=== PATIENT | male | born 1945 | race Caucasian/White ===

== ENCOUNTER 2017-07-28 13:19 | Emergency (ER) | payer MEDICARE, OTHER ==
[2012-05-07 10:36] VITALS: BMI 32.3
[2017-07-28 14:07] LABS: BASOPHILS 0.6 % (0-2); EOSINOPHILS 1.7 % (0-7); HEMOGLOBIN 15.6 g/dL (13.5-17.5); IMMATURE GRANULOCYTES 0.3 % (0-5); LYMPHOCYTES 23.6 % (15-50); MCHC 33.2 g/dL (31.0-37.0); MCV 96.3 fL (80.0-100.0); MEAN PLATELET VOLUME 11.7 fL (7.4-10.4); MONOCYTES 5.5 % (2-11); NEUTROPHILS 68.3 % (40-80); PLATELET COUNT 197 10x3/uL (130-400); RBC 4.88 10x6/uL (4.20-6.10); RDW 14.9 % (11.5-14.5); WBC 6.9 10x3/uL (4.8-10.8)
[2017-07-28 14:20] LABS: ALBUMIN 3.8 g/dL (3.4-5.0); ALKALINE PHOSPHATASE 68 U/L (46-116); ALT (SGPT) 30 U/L (10-68); BILIRUBIN - TOTAL 0.39 mg/dL (0.2-1.3); CALC OSMOLALITY 285 mosm/kg (275-300); CALCIUM 9.8 mg/dL (8.5-10.1); CARBON DIOXIDE 28.9 mmol/L (21.0-32.0); CHLORIDE - SERUM 102 mmol/L (98-107); GLUCOSE 147 mg/dL (74-106); POTASSIUM - SERUM 4.1 mmol/L (3.5-5.1); PROTEIN - SERUM 7.2 g/dL (6.4-8.2); SODIUM 141 mmol/L (136-145); UREA NITROGEN 17 mg/dL (7-18); eGFR NON AFRICAN AMERICAN 79 mL/min (90-120)
[2017-07-28 14:24] LABS: APPEARANCE CLEAR (CLEAR); COLOR YELLOW (YELLOW)
[2017-07-28 14:25] LABS: SPECIFIC GRAVITY 1.015 (1.005-1.020)
[2017-07-28 14:30] LABS: GLUCOSE 250 mg/dL (NEGATIVE); KETONE NEGATIVE (NEGATIVE); NITRITE NEGATIVE (NEGATIVE); PROTEIN 1+ mg/dL (NEGATIVE)
[2017-07-28 14:31] LABS: BILIRUBIN NEGATIVE (NEGATIVE); UROBILINOGEN NORMAL (NORMAL)
== END 2017-07-28 18:19 | disposition home or self-care (01) ==
LOC: D.ER 13:19
PROVIDERS: Emergency Medicine
DX: R41.82 Altered mental status, unspecified (principal); E11.9 Type 2 diabetes mellitus without complications; Z79.4 Long term (current) use of insulin; I10 Essential (primary) hypertension

== ENCOUNTER 2018-06-27 23:51 | Inpatient (IN) | payer MEDICARE, OTHER ==
[~2018-06-27] VITALS: Ht 177.8 cm; Wt 115.0 kg
[2018-06-27] MEDS ORDERED: HYDROCODON-ACE1 EAC7 PO (23:56)
[2018-06-27] MEDS ORDERED: LOVENOX40 MG/0.4 SC (23:56)
[2018-06-27] MEDS ORDERED: PIOGLITAZONE15 MG PO (23:57)
[2018-06-27] MEDS ORDERED: MAG-OX 400 MG400 MG PO (23:57)
[2018-06-27] MEDS ORDERED: JANUVIA100 MG PO (23:58)
[2018-06-27] MEDS ORDERED: GLIPIZIDE10 MG PO (23:58)
[2018-06-27] MEDS ORDERED: GLUCOPHAGE1000 MG PO (23:58)
[2018-06-27] MEDS ORDERED: ACCUPRIL20 MG PO (23:58)
[2018-06-27] MEDS ORDERED: METHOTREXATE2.5 MG PO (23:59)
[2018-06-27] MEDS ORDERED: PLAVIX75 MG (23:59)
[2018-06-27] MEDS ORDERED: LIPITOR40 MG PO (23:59)
[2018-06-28 01:37] LABS: BASOPHILS 0.2 % (0-2); EOSINOPHILS 0.2 % (0-7); HEMATOCRIT 30.2 % (42.0-54.0); HEMOGLOBIN 10.1 g/dL (13.5-17.5); IMMATURE GRANULOCYTES 0.6 % (0-5); LYMPHOCYTES 7.1 % (15-50); MCH 30.4 pg (26.0-34.0); MCHC 33.1 g/dL (31.0-37.0); MCV 91.8 fL (80.0-100.0); MEAN PLATELET VOLUME 9.9 fL (7.4-10.4); MONOCYTES 6.2 % (2-11); NEUTROPHILS 85.7 % (40-80); PLATELET COUNT 359 10x3/uL (130-400); RBC 3.19 10x6/uL (4.20-6.10); RDW 17.4 % (11.5-14.5); WBC 10.5 10x3/uL (4.8-10.8)
[2018-06-28 01:49] LABS: ALBUMIN 2.8 g/dL (3.4-5.0); ALKALINE PHOSPHATASE 115 U/L (46-116); ALT (SGPT) 65 U/L (10-68); BILIRUBIN - TOTAL 0.93 mg/dL (0.2-1.3); CALC OSMOLALITY 280 mosm/kg (275-300); CALCIUM 8.9 mg/dL (8.5-10.1); CARBON DIOXIDE 22.9 mmol/L (21.0-32.0); CHLORIDE - SERUM 100 mmol/L (98-107); PROTEIN - SERUM 6.1 g/dL (6.4-8.2); SODIUM 134 mmol/L (136-145); UREA NITROGEN 21 mg/dL (7-18); eGFR NON AFRICAN AMERICAN 78 mL/min (90-120)
[2018-06-28 01:51] LABS: GLUCOSE 285 mg/dL (74-106)
[2018-06-28 02:00] VITALS: BP 115/50
[2018-06-28 04:00] VITALS: BP 138/71
[2018-06-28] MEDS ORDERED: GLUCOPHAGE500 MG PO (04:17)
[2018-06-28] MEDS ORDERED: PREVACID15 MG PO (04:18)
[2018-06-28] MEDS ORDERED: GLIPIZIDE10 MG PO (04:19)
[2018-06-28] MEDS ORDERED: JANUVIA100 MG PO (04:20)
[2018-06-28] MEDS ORDERED: ACCUPRIL20 MG PO (04:20)
[2018-06-28] MEDS ORDERED: FOLIC ACID1 MG PO ×2 (04:21)
[2018-06-28] MEDS ORDERED: LIPITOR40 MG PO (04:21)
[2018-06-28] MEDS ORDERED: PLAVIX75 MG PO (04:23)
[2018-06-28] MEDS ORDERED: METHOTREXATE2.5 MG PO (04:23)
[2018-06-28] MEDS ORDERED: PIOGLITAZONE HC30 MG PO (04:24)
[2018-06-28] MEDS ORDERED: FERROUS SULFAT325 MG PO ×2 (04:26)
[2018-06-28] MEDS ORDERED: MAG-OX 400 MG400 MG PO (04:28)
[2018-06-28] MEDS ORDERED: HYDROCODON-ACE1 EAC7 PO (04:28)
[2018-06-28] MEDS ORDERED: LOVENOX40 MG/0.4 SC (04:29)
[2018-06-28 06:57] VITALS: BP 138/71; BMI 36.3
[2018-06-28 07:54] VITALS: BP 132/67
[2018-06-28 10:05] LABS: APTT 41.3 SECONDS (22.8-39.4); INR 1.26 (0.85-1.17); PROTIME 15.4 SECONDS (11.6-15.0)
[2018-06-28 10:49] VITALS: BMI 36.2
[2018-06-28 11:27] VITALS: BP 135/65
[2018-06-28 13:47] VITALS: Ht 177.8 cm; Wt 115.0 kg
[2018-06-28 20:00] VITALS: BP 126/71
[2018-06-29] VITALS: BP 137/77
[2018-06-29 04:29] LABS: BASOPHILS 0.1 % (0-2); EOSINOPHILS 1.8 % (0-7); HEMATOCRIT 27.2 % (42.0-54.0); HEMOGLOBIN 8.9 g/dL (13.5-17.5); IMMATURE GRANULOCYTES 0.7 % (0-5); LYMPHOCYTES 13.4 % (15-50); MCH 30.5 pg (26.0-34.0); MCHC 32.7 g/dL (31.0-37.0); MCV 93.2 fL (80.0-100.0); MEAN PLATELET VOLUME 9.6 fL (7.4-10.4); MONOCYTES 6.5 % (2-11); NEUTROPHILS 77.5 % (40-80); PLATELET COUNT 320 10x3/uL (130-400); RBC 2.92 10x6/uL (4.20-6.10); RDW 17.8 % (11.5-14.5)
[2018-06-29 04:35] LABS: WBC 7.3 10x3/uL (4.8-10.8)
[2018-06-29 04:57] LABS: ALBUMIN 2.5 g/dL (3.4-5.0); ALKALINE PHOSPHATASE 100 U/L (46-116); ALT (SGPT) 45 U/L (10-68); CALC OSMOLALITY 276 mosm/kg (275-300); CALCIUM 8.5 mg/dL (8.5-10.1); CHLORIDE - SERUM 101 mmol/L (98-107); CREATININE - SERUM 0.9 mg/dL (0.6-1.3); GLUCOSE 235 mg/dL (74-106); MAGNESIUM - SERUM 1.6 mg/dL (1.8-2.4); POTASSIUM - SERUM 3.9 mmol/L (3.5-5.1); PROTEIN - SERUM 5.7 g/dL (6.4-8.2); SODIUM 134 mmol/L (136-145); UREA NITROGEN 16 mg/dL (7-18); eGFR NON AFRICAN AMERICAN 89 mL/min (90-120)
[2018-06-29 05:53] VITALS: BP 122/72
[2018-06-29 07:59] VITALS: BP 123/75
[2018-06-29 10:46] VITALS: BP 109/58
[2018-06-29 15:47] VITALS: BP 124/66
[2018-06-29 20:00] VITALS: BP 110/53
[2018-06-30] VITALS: BP 106/62
[2018-06-30 04:00] VITALS: BP 147/77
[2018-06-30 05:38] LABS: BASOPHILS 0.3 % (0-2); EOSINOPHILS 3.6 % (0-7); HEMATOCRIT 25.1 % (42.0-54.0); HEMOGLOBIN 8.1 g/dL (13.5-17.5); IMMATURE GRANULOCYTES 0.6 % (0-5); MCH 30.2 pg (26.0-34.0); MCHC 32.3 g/dL (31.0-37.0); MCV 93.7 fL (80.0-100.0); MONOCYTES 9.9 % (2-11); NEUTROPHILS 66.6 % (40-80); PLATELET COUNT 326 10x3/uL (130-400); RBC 2.68 10x6/uL (4.20-6.10); RDW 17.5 % (11.5-14.5); WBC 6.4 10x3/uL (4.8-10.8)
[2018-06-30 05:50] LABS: ALBUMIN 2.2 g/dL (3.4-5.0); ALKALINE PHOSPHATASE 88 U/L (46-116); ALT (SGPT) 35 U/L (10-68); BILIRUBIN - TOTAL 0.73 mg/dL (0.2-1.3); CALC OSMOLALITY 277 mosm/kg (275-300); CALCIUM 8.6 mg/dL (8.5-10.1); CARBON DIOXIDE 26.9 mmol/L (21.0-32.0); CHLORIDE - SERUM 103 mmol/L (98-107); CREATININE - SERUM 0.7 mg/dL (0.6-1.3); GLUCOSE 195 mg/dL (74-106); MAGNESIUM - SERUM 1.6 mg/dL (1.8-2.4); POTASSIUM - SERUM 3.9 mmol/L (3.5-5.1); PROTEIN - SERUM 5.3 g/dL (6.4-8.2); SODIUM 136 mmol/L (136-145); UREA NITROGEN 14 mg/dL (7-18); eGFR NON AFRICAN AMERICAN > 90 mL/min (90-120)
[2018-06-30 08:04] VITALS: BP 131/74
[2018-06-30 11:01] VITALS: BP 111/68
[2018-06-30 13:48] LABS: % SATURATION 14 % (15-55); IRON 24 ug/dl (35-150); TOTAL IRON BIND CAPACITY 171 ug/dl (260-445); UNSAT IRON BIND CAPACITY 147 ug/dl (150-375)
[2018-06-30 18:26] VITALS: BP 110/70
[2018-06-30 20:00] VITALS: BP 140/76
[2018-07-01 00:11] VITALS: BP 135/78
[2018-07-01 04:00] VITALS: BP 114/62
[2018-07-01 04:06] LABS: BASOPHILS 0.3 % (0-2); EOSINOPHILS 3.3 % (0-7); HEMATOCRIT 25.4 % (42.0-54.0); HEMOGLOBIN 8.2 g/dL (13.5-17.5); IMMATURE GRANULOCYTES 0.7 % (0-5); LYMPHOCYTES 19.6 % (15-50); MCH 30.1 pg (26.0-34.0); MCHC 32.3 g/dL (31.0-37.0); MCV 93.4 fL (80.0-100.0); MEAN PLATELET VOLUME 9.9 fL (7.4-10.4); MONOCYTES 12.1 % (2-11); PLATELET COUNT 371 10x3/uL (130-400); RBC 2.72 10x6/uL (4.20-6.10); RDW 17.3 % (11.5-14.5); WBC 6.7 10x3/uL (4.8-10.8)
[2018-07-01 04:21] LABS: ALBUMIN 2.3 g/dL (3.4-5.0); ALKALINE PHOSPHATASE 98 U/L (46-116); ALT (SGPT) 31 U/L (10-68); BILIRUBIN - TOTAL 0.65 mg/dL (0.2-1.3); CALC OSMOLALITY 274 mosm/kg (275-300); CALCIUM 8.4 mg/dL (8.5-10.1); CARBON DIOXIDE 27.9 mmol/L (21.0-32.0); CHLORIDE - SERUM 101 mmol/L (98-107); CREATININE - SERUM 0.8 mg/dL (0.6-1.3); GLUCOSE 201 mg/dL (74-106); MAGNESIUM - SERUM 1.6 mg/dL (1.8-2.4); PHOSPHOROUS 3.3 mg/dL (2.5-4.9); POTASSIUM - SERUM 4.1 mmol/L (3.5-5.1); PROTEIN - SERUM 5.5 g/dL (6.4-8.2); SODIUM 134 mmol/L (136-145); UREA NITROGEN 14 mg/dL (7-18); eGFR NON AFRICAN AMERICAN > 90 mL/min (90-120)
[2018-07-01 09:08] VITALS: BP 126/72
[2018-07-01 12:33] VITALS: BP 120/68
[2018-07-01 15:12] VITALS: BP 110/74
[2018-07-01 20:46] VITALS: BP 137/60
[2018-07-02] VITALS: BP 105/73
[2018-07-02 05:22] LABS: BASOPHILS 0.3 % (0-2); EOSINOPHILS 3.7 % (0-7); HEMATOCRIT 27.2 % (42.0-54.0); HEMOGLOBIN 8.8 g/dL (13.5-17.5); LYMPHOCYTES 20.4 % (15-50); MCHC 32.4 g/dL (31.0-37.0); MCV 92.8 fL (80.0-100.0); MEAN PLATELET VOLUME 9.7 fL (7.4-10.4); NEUTROPHILS 61.6 % (40-80); PLATELET COUNT 443 10x3/uL (130-400); RBC 2.93 10x6/uL (4.20-6.10); RDW 17.2 % (11.5-14.5); WBC 5.9 10x3/uL (4.8-10.8)
[2018-07-02 05:55] VITALS: BP 140/59
[2018-07-02 05:56] LABS: ALBUMIN 2.5 g/dL (3.4-5.0); ALKALINE PHOSPHATASE 108 U/L (46-116); ALT (SGPT) 33 U/L (10-68); BILIRUBIN - TOTAL 0.78 mg/dL (0.2-1.3); CALC OSMOLALITY 279 mosm/kg (275-300); CALCIUM 8.9 mg/dL (8.5-10.1); CARBON DIOXIDE 25.6 mmol/L (21.0-32.0); CHLORIDE - SERUM 103 mmol/L (98-107); CREATININE - SERUM 0.9 mg/dL (0.6-1.3); MAGNESIUM - SERUM 1.6 mg/dL (1.8-2.4); PHOSPHOROUS 3.6 mg/dL (2.5-4.9); PROTEIN - SERUM 5.9 g/dL (6.4-8.2); SODIUM 138 mmol/L (136-145); UREA NITROGEN 15 mg/dL (7-18); eGFR NON AFRICAN AMERICAN 89 mL/min (90-120)
[2018-07-02 06:01] LABS: GLUCOSE 145 mg/dL (74-106)
[2018-07-02 07:52] VITALS: BP 150/81
[2018-07-02] MEDS ORDERED: NORCO 10-325 TA1 TAB PO (08:30)
[2018-07-02] MEDS ORDERED: ELIQUIS5 MG PO (09:19)
[2018-07-02] MEDS ORDERED: LOVENOX INJ100 MG/ML SC (09:19)
[2018-07-02 10:49] VITALS: BP 142/81
[2018-07-04 09:18] LABS: HEXAGONAL PHASE PHOS 6 sec (0-11); LUPUS - INTERPRETATION Comment: (()); LUPUS - THROMBIN TIME 13.4 sec (0.0-23.0); LUPUS - dRVVT 74.3 sec (0.0-47.0); PTT-LA 53.5 sec (0.0-51.9); PTT-LA MIX 50.2 sec (0.0-48.9)
[2018-07-08 18:09] LABS: FACTOR II DNA ANALYSIS Negative (())
== END 2018-07-02 13:15 | disposition home or self-care (01) | DRG 605 ==
LOC: D.ER 23:51 → D.M2 06-28 03:20 → OBSVTIME 06-28 03:20 → D.M2 06-28 03:20
PROVIDERS: Family Medicine; Internal Medicine Hematology & Oncology; Orthopaedic Surgery
DX: S70.02XA Contusion of left hip, initial encounter (principal); I82.442 Acute embolism and thrombosis of left tibial vein; M25.552 Pain in left hip; W19.XXXA Unspecified fall, initial encounter; D50.9 Iron deficiency anemia, unspecified; E11.65 Type 2 diabetes mellitus with hyperglycemia; K21.9 Gastro-esophageal reflux disease without esophagitis; M06.9 Rheumatoid arthritis, unspecified; E83.42 Hypomagnesemia; Z87.891 Personal history of nicotine dependence; I10 Essential (primary) hypertension

== ENCOUNTER 2018-07-04 04:22 | Inpatient (IN) | payer MEDICARE, OTHER ==
[~2018-07-04] VITALS: Ht 177.8 cm; Wt 109.3 kg
--- NOTE | ~2018-07-04 | MORECARE ---
CASE MANAGEMENT DISCHARGE SUMMARY PATIENT: JOVAN JEFF UNIT: [id number] ADM DATE: 07/05/18 AGE: 72 : [birth year] SEX: M ROOM/BED: D.9827 AUTHOR: NATHAN LAURA PHYSICIAN: REFERRING PHYSICIAN: JENNYFER BILLS MD DATE OF SERVICE: 07/15/18 Discharge Plan Patient Name: JOVAN JEFF Facility: [facility]:[place] : 1945 Planned Disposition: Home Anticipated Discharge Date: 07/15/18 Discharge Date: Expected LOS: 10 Initial Reviewer: [id number] Initial Review Date: 07/04/2018 Generated: 07/15/18 5:55 pm Comments DCP- Discharge Planning Updated by [id number]: Chacho Heath on 07/04/18 2:[address] Patient Name: JOVAN JEFF Encounter No: [id number] : 1945 Primary Insurance: MEDICARE A & B Anticipated DC Date: 07-05-2018 Planned Disposition: Inpatient Rehab External Planned Provider: [facility] DCP follow-up note: CM RECEIVED ORDER FOR INPATIENT REHAB PRESCREENING, SPOKE TO PT AND SPOUSE IN ROOM REGARDING ORDER, PROVIDERS AND LOCATIONS OF INPATIENT REHAB. PT AND SPOUSE BOTH WANT TO CONSIDER REHAB AT [facility]. CM SPOKE TO NICOLAS OF INPATIENT REHAB WHO HAS MET WITH PT AND SPOUSE IN EMERGENCY ROOM AND WILL BE FOLLOWING, PT APPEARS TO BE GOOD CANDIDATE WHEN HIS PAIN IS CONTROLLED. NICOLAS WILL MEET WITH PT AGAIN TOMORROW, 07-05-18. CM WAITING PAIN CONTROL AND INPATIENT REHAB ADMISSION DETERMINATION. Chacho Heath, CASE MANAGEMENT DCP- Discharge Planning Updated by [id number]: Mary Jane Lozoya on 07/04/18 10:[address] @1040 CM contacted Nicolas Suh @1162, for Rehab follow-up. Nicolas states at this time, patient states is unable to participate in 3 hours therapy/8hoour/day. REHAB WILL FOLLOW up on the medical floor. CM met with patient and spouse in ER/room to discuss dc needs/plans. Patient provided verbal consent to discuss current and ongoing needs with/in the presence of his , Monalisa. .CM discussed availability of Home Health, Rehab Services and Medical Equipment. PCP: DR Rosas. Pharmacy: [email or web address] for long-term medications. HHS: None. DME: Cane, Walker, Shower chair. Emergency Contact: Monalisa Jeff () [phone]. 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 CM will continue to follow and assist with dc needs/plans PRN. Mary Jane Lozoya RN CM DCPIA - Discharge Planning Initial Assessment Updated by [email or web address]: Mary Jane Lozoya on 07/04/18 11:13 am * Is the patient Alert and Oriented? Yes * How many steps to enter\exit or inside your home? * PCP Dr. Rosas * Pharmacy [facility] * Preadmission Environment Home with Family * ADLs Independent * Equipment Cane Shower Chair Walker * Other Equipment None * List name and contact numbers for known caregivers / representatives who currently or will assist patient after discharge: Monalisa Jeff () [phone] * Verbal permission to speak to the caregivers and representatives has been obtained from the patient. Yes * Community resources currently utilized None * Please name any agencies selected above. NA * Additional services required to return to the preadmission environment? Yes * Can the patient safely return to the preadmission environment? No * Has this patient been hospitalized within the prior 30 days at any hospital? Yes Coverage Notice Reviewer: [id number] Violeta Mann Notice Issued Date-Time: 07/04/2018 15:16 Notice Type: Medicare Outpatient Observation Notice Notice Delivered To: Family Member Relationship to Patient: Spouse Manipulative Therapy Specialist Name: MONALISA JEFF Delivery Method: HAND - Hand Delivered Yvette Days: Prior Verbal Notification: Recipient Understood Notice: Yes Recipient Signature: Yes Med Rec Note Co-signed by Attending: Coverage Notice Comment: PERMISSION RECEIVED TO DISCUSS NOTICE IN FRONT OF MONALISA AND LAB PERSONAL X2. PATIENTS SIGNED BECAUSE LAB WAS LOOKING Reviewer: [id number] - Chacho Heath Notice Issued Date-Time: 07/15/2018 14:10 Notice Type: IM Discharge Notice Notice Delivered To: Patient Relationship to Patient: Manipulative Therapy Specialist Name: Delivery Method: HAND - Hand Delivered Yvette Days: Prior Verbal Notification: Recipient Understood Notice: Yes Recipient Signature: Yes Med Rec Note Co-signed by Attending: Coverage Notice Comment: Last DP export: 07/04/18 2:49 Patient Name: JOVAN JEFF Page [id number] at 1655 All edits/amendments must be made on the electronic document DICTATION DATE: 07/15/181653 PSYCHOMETRIST: BERNADINE 07/15/181653 RPT#: [id number] DC DATE: STATUS: ADM IN [facility] [address] [place] [address] END OF REPORT
--- NOTE | ~2018-07-04 | MORECARE ---
CASE MANAGEMENT DISCHARGE SUMMARY PATIENT: JOVAN JEFF UNIT: [id number] ADM DATE: 07/05/18 AGE: 72 : [birth year] SEX: M ROOM/BED: D.2556 AUTHOR: KEYADOC PHYSICIAN: REFERRING PHYSICIAN: JENNYFER BILLS MD DATE OF SERVICE: 07/15/18 Discharge Plan Patient Name: JOVAN JEFF Facility: [facility]:[place] : 1945 Planned Disposition: Home Anticipated Discharge Date: 07/15/18 Discharge Date: Expected LOS: 10 Initial Reviewer: [email or web address] Initial Review Date: 07/04/2018 Generated: 07/15/18 6:04 pm Comments DCP- Discharge Planning Updated by [id number]: Chacho Heath on 07/15/18 3:[address] Patient Name: JOVAN JEFF Admission Status: ER Accout number: [id number] Admission Date: 07-05-2018 : 1945 Admission Diagnosis:CONTUSION OF LEFT HIP, INITIAL ENCOUNTER Attending: JENNYFER BILLS Current LOS: 10 Anticipated DC Date: 07-15-2018 Planned Disposition: Home Primary Insurance: MEDICARE A & B Discharge Planning Comments: CM RECEIVED DISCHARGE ORDER, MET WITH PT AND SPOUSE IN ROOM TO DISCUSS DISCHARGE NEEDS AND PLANNING. PT PROVIDED PERMISSION TO DISCUSS DISCHARGE PLANNING AND TREATMENT WITH SPOUSE IN ROOM. CM DISCUSSED AVAILABILITY OF HOME HEALTH, REHAB SERVICES AND MEDICAL EQUIPMENT. PT DENIES DISCHARGE NEEDS, DENIES NEED OF HOME HEALTH AND THERAPY SERVICES AND REPORTED HIS SPOUSE IS THE BEST NURSE FOR HIM; PT'S SPOUSE THINKS SHE CAN MANAGE PT AT HOME. SPOUSE TO TRANSPORT HOME AT DISCHARGE. PT ASKED FOR HOSPITAL BED, CM REVIEWED CHART NOTES, NO QUALIFICATION FOR HOSPITAL BED FOUND BY CM; CM SPOKE TO SATYA TOMLIN WHO INFORMED CM THAT PT HAS NO QUALIFICATIONS FOR HOSPITAL BED. CM SPOKE TO SATYA FRY WHO AGREED PT HAS NO QUALIFICATION FOR HOSPTIAL BED. CM INFORMED PT WHO REPORTS "IT IS NOT A BIG DEAL." CM CONTACT [facility] WHO REPORTS PRIVATE PAY FOR MONTH RENTAL WAS $385; [employer] $100 WITH $25 TAXONOMY TEACHER AND $25 DELIVER CHARGE. CM PROVIDED INFORMATION TO PT'S SPOUSE WHO DENIED DISCHARGE NEEDS. IMPORTANT MESSAGE FROM MEDICARE PROVIDED AND EXPLAINED. DIRECTOR SALES TRAINING NURSE NOTIFIED. Touch Up Carver: Chacho Heath DCP- Discharge Planning Updated by [id number]: Chacho Heath on 07/04/18 2:[address] Patient Name: JOVAN JEFF Encounter No: [id number] : 1945 Primary Insurance: MEDICARE A & B Anticipated DC Date: 07-05-2018 Planned Disposition: Inpatient Rehab External Planned Provider: [facility] DCP follow-up note: CM RECEIVED ORDER FOR INPATIENT REHAB PRESCREENING, SPOKE TO PT AND SPOUSE IN ROOM REGARDING ORDER, PROVIDERS AND LOCATIONS OF INPATIENT REHAB. PT AND SPOUSE BOTH WANT TO CONSIDER REHAB AT [facility]. CM SPOKE TO NICOLAS OF INPATIENT REHAB WHO HAS MET WITH PT AND SPOUSE IN EMERGENCY ROOM AND WILL BE FOLLOWING, PT APPEARS TO BE GOOD CANDIDATE WHEN HIS PAIN IS CONTROLLED. NICOLAS WILL MEET WITH PT AGAIN TOMORROW, 07-05-18. CM WAITING PAIN CONTROL AND INPATIENT REHAB ADMISSION DETERMINATION. Chacho Heath, CASE MANAGEMENT DCP- Discharge Planning Updated by [id number]: Mary Jane Lozoya on 07/04/18 10:[address] @1040 CM contacted Nicolas Suh @1167, for Rehab follow-up. Nicolas states at this time, patient states is unable to participate in 3 hours therapy/8hoour/day. REHAB WILL FOLLOW up on the medical floor. CM met with patient and spouse in ER/room to discuss dc needs/plans. Patient provided verbal consent to discuss current and ongoing needs with/in the presence of his , Monalisa. .CM discussed availability of Home Health, Rehab Services and Medical Equipment. PCP: DR Rosas. [facility] for long-term medications. HHS: None. DME: Blayne Walker, Shower chair. Emergency Contact: Monalisa Jeff () [phone]. Patient states he feels unsafe returning to the home environment at this time and is In agreement for INPATIENT REHAB @MANAGER OF HUMAN RESOURCES. CM will continue to follow and assist with dc needs/plans PRN. Mary Jane Lozoya RN, CM DCPIA - Discharge Planning Initial Assessment Updated by [id number]: Mary Jane Lozoya on 07/04/18 11:13 am * Is the patient Alert and Oriented? Yes * How many steps to enter\\exit or inside your home? * PCP Dr. Rosas * Pharmacy [facility] * Preadmission Environment Home with Family * ADLs Independent * Equipment Cane Shower Chair Walker * Other Equipment None * List name and contact numbers for known caregivers / representatives who currently or will assist patient after discharge: Monalisa Jeff () [phone] * Verbal permission to speak to the caregivers and representatives has been obtained from the patient. Yes * Community resources currently utilized None * Please name any agencies selected above. NA * Additional services required to return to the preadmission environment? Yes * Can the patient safely return to the preadmission environment? No * Has this patient been hospitalized within the prior 30 days at any hospital? Yes Coverage Notice Reviewer: [id number] Violeta Mann Notice Issued Date-Time: 07/04/2018 15:16 Notice Type: Medicare Outpatient Observation Notice Notice Delivered To: Family Member Relationship to Patient: Spouse Manager Action Name: MONALISA JEFF Delivery Method: HAND - Hand Delivered Yvette Days: Prior Verbal Notification: Recipient Understood Notice: Yes Recipient Signature: Yes Med Rec Note Co-signed by Attending: Coverage Notice Comment: PERMISSION RECEIVED TO DISCUSS NOTICE IN FRONT OF MONALISA AND LAB PERSONAL X2. PATIENTS SIGNED BECAUSE LAB WAS LOOKING Reviewer: [id number] - Chacho Heath Notice Issued Date-Time: 07/15/2018 14:10 Notice Type: IM Discharge Notice Notice Delivered To: Patient Relationship to Patient: Manager Action Name: Delivery Method: HAND - Hand Delivered Yvette Days: Prior Verbal Notification: Recipient Understood Notice: Yes Recipient Signature: Yes Med Rec Note Co-signed by Attending: Coverage Notice Comment: Last DP export: 07/15/18 3:55 Patient Name: JOVAN JEFF Page [phone] at 1704 All edits/amendments must be made on the electronic document DICTATION DATE: 07/15/181703 AIR EXPORT LOGISTICS MANAGER: BERNADINE 07/15/181703 RPT#: [id number] DC DATE: STATUS: ADM IN [facility] [address] [place] [address] END OF REPORT
[~2018-07-04 04:22] MED LIST: ACCUPRIL20 MG PO; ELIQUIS5 MG PO; FERROUS SULFAT325 MG PO; FOLIC ACID1 MG PO; GLIPIZIDE10 MG PO; GLUCOPHAGE1000 MG PO; GLUCOPHAGE500 MG PO; HYDROCODON-ACE1 EAC7 PO; JANUVIA100 MG PO; LIPITOR40 MG PO; LOVENOX INJ100 MG/ML SC; LOVENOX40 MG/0.4 SC; MAG-OX 400 MG400 MG PO; METHOTREXATE2.5 MG PO; NORCO 10-325 TA1 TAB PO; PIOGLITAZONE HC30 MG PO; PIOGLITAZONE15 MG PO; PLAVIX75 MG; PLAVIX75 MG PO; PREVACID15 MG PO
[2018-07-04 13:42] VITALS: BP 158/77; BMI 35.3
[2018-07-04 14:39] LABS: ALBUMIN 2.9 g/dL (3.4-5.0); ALKALINE PHOSPHATASE 122 U/L (46-116); ALT (SGPT) 26 U/L (10-68); BILIRUBIN - TOTAL 0.94 mg/dL (0.2-1.3); CALC OSMOLALITY 283 mosm/kg (275-300); CALCIUM 8.9 mg/dL (8.5-10.1); CARBON DIOXIDE 23.8 mmol/L (21.0-32.0); CHLORIDE - SERUM 101 mmol/L (98-107); CREATININE - SERUM 0.9 mg/dL (0.6-1.3); LIPASE 80 U/L (73-393); MAGNESIUM - SERUM 1.6 mg/dL (1.8-2.4); POTASSIUM - SERUM 4.7 mmol/L (3.5-5.1); PROTEIN - SERUM 5.7 g/dL (6.4-8.2); SODIUM 136 mmol/L (136-145); UREA NITROGEN 20 mg/dL (7-18); eGFR NON AFRICAN AMERICAN 89 mL/min (90-120)
[2018-07-04 14:52] LABS: GLUCOSE 268 mg/dL (74-106)
[2018-07-04 14:59] LABS: HEMATOCRIT 26.9 % (42.0-54.0); HEMOGLOBIN 8.5 g/dL (13.5-17.5); MCH 29.7 pg (26.0-34.0); MCHC 31.6 g/dL (31.0-37.0); MCV 94.1 fL (80.0-100.0); MEAN PLATELET VOLUME 9.9 fL (7.4-10.4); PLATELET COUNT 457 10x3/uL (130-400); RBC 2.86 10x6/uL (4.20-6.10); RDW 17.6 % (11.5-14.5); WBC 10.8 10x3/uL (4.8-10.8)
[2018-07-04 15:12] LABS: APTT 25.4 SECONDS (22.8-39.4); INR 1.22 (0.85-1.17)
[2018-07-04 15:31] LABS: LYMPHOCYTES 5 % (15-50); MONOCYTES 2 % (2-11); NEUTROPHILS 93 % (40-80); TARGET CELLS 1+
[2018-07-04 15:32] LABS: ELLIPTOCYTES OCC; ROULEAUX OCC
[2018-07-04 15:44] LABS: PLATELET ESTIMATE INCREASED
[2018-07-04 22:25] VITALS: BP 123/59
[2018-07-05 02:17] VITALS: BP 115/66
[2018-07-05 02:33] LABS: APPEARANCE CLEAR (CLEAR); BILIRUBIN NEGATIVE (NEGATIVE); COLOR YELLOW (YELLOW); GLUCOSE 1000 mg/dL (NEGATIVE); KETONE SMALL mg/dL (NEGATIVE); NITRITE NEGATIVE (NEGATIVE); PROTEIN NEGATIVE (NEGATIVE); UROBILINOGEN NORMAL (NORMAL)
[2018-07-05 05:59] VITALS: BP 131/74
[2018-07-05 06:11] LABS: BASOPHILS 0.3 % (0-2); EOSINOPHILS 0.7 % (0-7); HEMATOCRIT 25.5 % (42.0-54.0); HEMOGLOBIN 8.2 g/dL (13.5-17.5); IMMATURE GRANULOCYTES 0.3 % (0-5); LYMPHOCYTES 12.4 % (15-50); MCH 30.1 pg (26.0-34.0); MCHC 32.2 g/dL (31.0-37.0); MCV 93.8 fL (80.0-100.0); MEAN PLATELET VOLUME 9.9 fL (7.4-10.4); MONOCYTES 10.6 % (2-11); NEUTROPHILS 75.7 % (40-80); PLATELET COUNT 443 10x3/uL (130-400); RBC 2.72 10x6/uL (4.20-6.10)
[2018-07-05 06:23] LABS: WBC 7.5 10x3/uL (4.8-10.8)
[2018-07-05 06:34] LABS: ALBUMIN 2.5 g/dL (3.4-5.0); ALKALINE PHOSPHATASE 106 U/L (46-116); ALT (SGPT) 25 U/L (10-68); BILIRUBIN - TOTAL 0.74 mg/dL (0.2-1.3); CALC OSMOLALITY 280 mosm/kg (275-300); CALCIUM 8.7 mg/dL (8.5-10.1); CARBON DIOXIDE 26.1 mmol/L (21.0-32.0); CHLORIDE - SERUM 102 mmol/L (98-107); CREATININE - SERUM 0.8 mg/dL (0.6-1.3); GLUCOSE 233 mg/dL (74-106); POTASSIUM - SERUM 4.1 mmol/L (3.5-5.1); PROTEIN - SERUM 5.7 g/dL (6.4-8.2); SODIUM 136 mmol/L (136-145); UREA NITROGEN 18 mg/dL (7-18); eGFR NON AFRICAN AMERICAN > 90 mL/min (90-120)
[2018-07-05 08:14] VITALS: BP 120/60
[2018-07-05 12:06] VITALS: BP 122/68
[2018-07-05 12:41] VITALS: Ht 177.8 cm; Wt 109.3 kg
[2018-07-05 16:03] VITALS: BP 115/62
[2018-07-05 16:56] LABS: CREATINE KINASE 262 UL (21-232)
[2018-07-05 17:33] LABS: CKMB 2.2 U/L (0.0-3.6)
[2018-07-05 21:28] VITALS: BP 112/60
[2018-07-06 01:06] VITALS: BP 105/59
[2018-07-06 04:00] VITALS: BP 120/62
[2018-07-06 08:00] VITALS: BP 113/64
[2018-07-06 12:52] VITALS: BP 121/70
[2018-07-06 17:16] VITALS: BP 117/62
[2018-07-06 20:15] VITALS: BP 126/64
[2018-07-07 01:16] VITALS: BP 121/70
[2018-07-07 05:51] VITALS: BP 128/64
[2018-07-07 07:54] LABS: BASOPHILS 0.8 % (0-2); EOSINOPHILS 3.2 % (0-7); IMMATURE GRANULOCYTES 1.3 % (0-5); LYMPHOCYTES 19.8 % (15-50); MCH 29.5 pg (26.0-34.0); MCHC 32.2 g/dL (31.0-37.0); MCV 91.6 fL (80.0-100.0); MEAN PLATELET VOLUME 9.8 fL (7.4-10.4); MONOCYTES 6.8 % (2-11); NEUTROPHILS 68.1 % (40-80); PLATELET COUNT 407 10x3/uL (130-400); RBC 2.51 10x6/uL (4.20-6.10); RDW 17.3 % (11.5-14.5); WBC 5.3 10x3/uL (4.8-10.8)
[2018-07-07 07:58] LABS: HEMOGLOBIN 7.4 g/dL (13.5-17.5)
[2018-07-07 08:20] VITALS: BP 136/76
[2018-07-07 11:25] LABS: BASOPHILS 0.7 % (0-2); EOSINOPHILS 2.8 % (0-7); HEMATOCRIT 24.2 % (42.0-54.0); HEMOGLOBIN 7.7 g/dL (13.5-17.5); IMMATURE GRANULOCYTES 1.4 % (0-5); MCHC 31.8 g/dL (31.0-37.0); MEAN PLATELET VOLUME 9.9 fL (7.4-10.4); MONOCYTES 6.8 % (2-11); NEUTROPHILS 73.3 % (40-80); PLATELET COUNT 432 10x3/uL (130-400); RBC 2.57 10x6/uL (4.20-6.10); RDW 17.6 % (11.5-14.5); WBC 5.7 10x3/uL (4.8-10.8)
[2018-07-07 11:26] LABS: MCV 94.2 fL (80.0-100.0)
[2018-07-07 20:42] VITALS: BP 121/63
[2018-07-08 01:36] VITALS: BP 138/49
[2018-07-08 06:04] VITALS: BP 145/71
[2018-07-08 06:36] LABS: BASOPHILS 0.4 % (0-2); HEMOGLOBIN 8.6 g/dL (13.5-17.5); IMMATURE GRANULOCYTES 2.8 % (0-5); LYMPHOCYTES 18.8 % (15-50); MCH 29.5 pg (26.0-34.0); MCHC 31.9 g/dL (31.0-37.0); MCV 92.5 fL (80.0-100.0); PLATELET COUNT 457 10x3/uL (130-400); RBC 2.92 10x6/uL (4.20-6.10); RDW 17.9 % (11.5-14.5)
[2018-07-08 06:40] LABS: CALC OSMOLALITY 272 mosm/kg (275-300); CALCIUM 8.6 mg/dL (8.5-10.1); CARBON DIOXIDE 27.1 mmol/L (21.0-32.0); CHLORIDE - SERUM 101 mmol/L (98-107); CREATININE - SERUM 0.7 mg/dL (0.6-1.3); MAGNESIUM - SERUM 1.7 mg/dL (1.8-2.4); POTASSIUM - SERUM 3.9 mmol/L (3.5-5.1); SODIUM 134 mmol/L (136-145); UREA NITROGEN 12 mg/dL (7-18); eGFR NON AFRICAN AMERICAN > 90 mL/min (90-120)
[2018-07-08 06:42] LABS: GLUCOSE 181 mg/dL (74-106)
[2018-07-08 09:15] VITALS: BP 136/69
[2018-07-08 14:42] VITALS: BP 128/78
[2018-07-08 21:22] VITALS: BP 131/69
[2018-07-09 01:19] VITALS: BP 123/58
[2018-07-09 05:02] LABS: BASOPHILS 0.4 % (0-2); EOSINOPHILS 4.5 % (0-7); HEMATOCRIT 28.4 % (42.0-54.0); HEMOGLOBIN 8.9 g/dL (13.5-17.5); IMMATURE GRANULOCYTES 2.4 % (0-5); LYMPHOCYTES 25.1 % (15-50); MCH 29.3 pg (26.0-34.0); MCHC 31.3 g/dL (31.0-37.0); MCV 93.4 fL (80.0-100.0); MEAN PLATELET VOLUME 10.5 fL (7.4-10.4); MONOCYTES 16.5 % (2-11); NEUTROPHILS 51.1 % (40-80); PLATELET COUNT 421 10x3/uL (130-400); RBC 3.04 10x6/uL (4.20-6.10); RDW 17.8 % (11.5-14.5); WBC 4.6 10x3/uL (4.8-10.8)
[2018-07-09 05:06] LABS: CALC OSMOLALITY 274 mosm/kg (275-300); CALCIUM 8.8 mg/dL (8.5-10.1); CARBON DIOXIDE 26.7 mmol/L (21.0-32.0); CHLORIDE - SERUM 101 mmol/L (98-107); CREATININE - SERUM 0.8 mg/dL (0.6-1.3); GLUCOSE 153 mg/dL (74-106); MAGNESIUM - SERUM 1.6 mg/dL (1.8-2.4); POTASSIUM - SERUM 4.1 mmol/L (3.5-5.1); SODIUM 136 mmol/L (136-145); UREA NITROGEN 13 mg/dL (7-18); eGFR NON AFRICAN AMERICAN > 90 mL/min (90-120)
[2018-07-09 06:11] VITALS: BP 125/62
[2018-07-09 07:56] VITALS: BP 135/71
[2018-07-09 11:03] VITALS: BP 126/68
[2018-07-09 15:29] VITALS: BP 126/63
[2018-07-09 20:00] VITALS: BP 119/64
[2018-07-10 00:46] VITALS: BP 122/64
[2018-07-10 04:00] VITALS: BP 125/70
[2018-07-10 05:59] LABS: BASOPHILS 0.5 % (0-2); EOSINOPHILS 3.7 % (0-7); HEMATOCRIT 30.8 % (42.0-54.0); HEMOGLOBIN 9.6 g/dL (13.5-17.5); IMMATURE GRANULOCYTES 1.3 % (0-5); LYMPHOCYTES 19.6 % (15-50); MCHC 31.2 g/dL (31.0-37.0); MCV 93.1 fL (80.0-100.0); MEAN PLATELET VOLUME 10.5 fL (7.4-10.4); MONOCYTES 16.8 % (2-11); NEUTROPHILS 58.1 % (40-80); PLATELET COUNT 413 10x3/uL (130-400); RBC 3.31 10x6/uL (4.20-6.10); RDW 17.5 % (11.5-14.5)
[2018-07-10 06:09] LABS: WBC 6.2 10x3/uL (4.8-10.8)
[2018-07-10 06:22] LABS: CALC OSMOLALITY 277 mosm/kg (275-300); CALCIUM 8.9 mg/dL (8.5-10.1); CHLORIDE - SERUM 100 mmol/L (98-107); CREATININE - SERUM 0.7 mg/dL (0.6-1.3); MAGNESIUM - SERUM 1.6 mg/dL (1.8-2.4); POTASSIUM - SERUM 4.3 mmol/L (3.5-5.1); SODIUM 136 mmol/L (136-145); UREA NITROGEN 13 mg/dL (7-18); VANCOMYCIN - TROUGH 19.6 ug/mL (10.0-20.0); eGFR NON AFRICAN AMERICAN > 90 mL/min (90-120)
[2018-07-10 06:24] LABS: GLUCOSE 203 mg/dL (74-106)
[2018-07-10 07:56] VITALS: BP 128/67
[2018-07-10 10:46] VITALS: BP 124/67
[2018-07-10 14:49] VITALS: BP 116/63
[2018-07-10 20:00] VITALS: BP 116/60
[2018-07-11] VITALS: BP 121/66
[2018-07-11 05:26] LABS: BASOPHILS 0.3 % (0-2); HEMATOCRIT 30.7 % (42.0-54.0); HEMOGLOBIN 9.8 g/dL (13.5-17.5); IMMATURE GRANULOCYTES 1.3 % (0-5); MCH 29.4 pg (26.0-34.0); MCHC 31.9 g/dL (31.0-37.0); MCV 92.2 fL (80.0-100.0); MEAN PLATELET VOLUME 10.1 fL (7.4-10.4); MONOCYTES 13.8 % (2-11); NEUTROPHILS 64.6 % (40-80); PLATELET COUNT 409 10x3/uL (130-400); RBC 3.33 10x6/uL (4.20-6.10); RDW 17.2 % (11.5-14.5); WBC 6.4 10x3/uL (4.8-10.8)
[2018-07-11 05:51] LABS: CALC OSMOLALITY 276 mosm/kg (275-300); CARBON DIOXIDE 26.1 mmol/L (21.0-32.0); CHLORIDE - SERUM 101 mmol/L (98-107); CREATININE - SERUM 0.8 mg/dL (0.6-1.3); GLUCOSE 211 mg/dL (74-106); POTASSIUM - SERUM 4.1 mmol/L (3.5-5.1); SODIUM 135 mmol/L (136-145); UREA NITROGEN 15 mg/dL (7-18); eGFR NON AFRICAN AMERICAN > 90 mL/min (90-120)
[2018-07-11 07:27] VITALS: BP 98/47
[2018-07-11 18:59] VITALS: BP 108/72
[2018-07-11 20:55] VITALS: BP 102/52
[2018-07-12 00:56] VITALS: BP 113/71
[2018-07-12 06:21] VITALS: BP 126/68
[2018-07-12 06:46] LABS: CALC OSMOLALITY 278 mosm/kg (275-300); CALCIUM 8.9 mg/dL (8.5-10.1); CARBON DIOXIDE 26.1 mmol/L (21.0-32.0); CHLORIDE - SERUM 101 mmol/L (98-107); CREATININE - SERUM 0.8 mg/dL (0.6-1.3); GLUCOSE 207 mg/dL (74-106); POTASSIUM - SERUM 3.8 mmol/L (3.5-5.1); SODIUM 136 mmol/L (136-145); UREA NITROGEN 15 mg/dL (7-18); eGFR NON AFRICAN AMERICAN > 90 mL/min (90-120)
[2018-07-12 08:03] VITALS: BP 122/66
[2018-07-12 11:52] VITALS: BP 99/57
[2018-07-12 15:58] VITALS: BP 104/68
[2018-07-12 20:00] VITALS: BP 116/61
[2018-07-13] VITALS: BP 136/66
[2018-07-13 06:04] VITALS: BP 136/72
[2018-07-13 08:00] VITALS: BP 135/71
[2018-07-13 11:26] VITALS: BP 139/66
[2018-07-13 16:02] VITALS: BP 117/66
[2018-07-13 20:12] VITALS: BP 131/77
[2018-07-14 00:20] VITALS: BP 136/70
[2018-07-14 04:49] VITALS: BP 136/74
[2018-07-14 05:23] LABS: BASOPHILS 0.2 % (0-2); EOSINOPHILS 2.6 % (0-7); HEMATOCRIT 29.9 % (42.0-54.0); HEMOGLOBIN 9.5 g/dL (13.5-17.5); IMMATURE GRANULOCYTES 0.8 % (0-5); LYMPHOCYTES 22.2 % (15-50); MCH 28.8 pg (26.0-34.0); MCHC 31.8 g/dL (31.0-37.0); MCV 90.6 fL (80.0-100.0); MEAN PLATELET VOLUME 10.5 fL (7.4-10.4); MONOCYTES 14.6 % (2-11); NEUTROPHILS 59.6 % (40-80); PLATELET COUNT 386 10x3/uL (130-400); RDW 17.5 % (11.5-14.5); WBC 6.6 10x3/uL (4.8-10.8)
[2018-07-14 05:38] LABS: ALBUMIN 2.3 g/dL (3.4-5.0); ALKALINE PHOSPHATASE 105 U/L (46-116); ALT (SGPT) 15 U/L (10-68); BILIRUBIN - TOTAL 0.54 mg/dL (0.2-1.3); CALC OSMOLALITY 277 mosm/kg (275-300); CALCIUM 8.8 mg/dL (8.5-10.1); CARBON DIOXIDE 25.1 mmol/L (21.0-32.0); CHLORIDE - SERUM 100 mmol/L (98-107); CREATININE - SERUM 0.9 mg/dL (0.6-1.3); GLUCOSE 217 mg/dL (74-106); MAGNESIUM - SERUM 1.7 mg/dL (1.8-2.4); POTASSIUM - SERUM 4.1 mmol/L (3.5-5.1); PROTEIN - SERUM 5.6 g/dL (6.4-8.2); SODIUM 135 mmol/L (136-145); UREA NITROGEN 14 mg/dL (7-18); eGFR NON AFRICAN AMERICAN 89 mL/min (90-120)
[2018-07-14 08:52] VITALS: BP 138/80
[2018-07-14 11:02] VITALS: BP 124/70
[2018-07-14 15:44] VITALS: BP 111/57
[2018-07-14 21:59] VITALS: BP 135/72
[2018-07-15 02:24] VITALS: BP 127/72
[2018-07-15 05:38] LABS: BASOPHILS 0.5 % (0-2); EOSINOPHILS 2.6 % (0-7); HEMATOCRIT 31.9 % (42.0-54.0); IMMATURE GRANULOCYTES 1.3 % (0-5); LYMPHOCYTES 24.6 % (15-50); MCH 28.1 pg (26.0-34.0); MCHC 31.3 g/dL (31.0-37.0); MCV 89.6 fL (80.0-100.0); MEAN PLATELET VOLUME 10.4 fL (7.4-10.4); MONOCYTES 14.2 % (2-11); NEUTROPHILS 56.8 % (40-80); PLATELET COUNT 391 10x3/uL (130-400); RBC 3.56 10x6/uL (4.20-6.10); RDW 17.4 % (11.5-14.5); WBC 6.2 10x3/uL (4.8-10.8)
[2018-07-15 05:45] VITALS: BP 129/73
[2018-07-15 05:50] LABS: ALBUMIN 2.3 g/dL (3.4-5.0); ALKALINE PHOSPHATASE 107 U/L (46-116); ALT (SGPT) 15 U/L (10-68); BILIRUBIN - TOTAL 0.55 mg/dL (0.2-1.3); CALC OSMOLALITY 276 mosm/kg (275-300); CARBON DIOXIDE 27.1 mmol/L (21.0-32.0); CHLORIDE - SERUM 101 mmol/L (98-107); CREATININE - SERUM 0.9 mg/dL (0.6-1.3); GLUCOSE 185 mg/dL (74-106); MAGNESIUM - SERUM 1.7 mg/dL (1.8-2.4); POTASSIUM - SERUM 4.2 mmol/L (3.5-5.1); PROTEIN - SERUM 5.8 g/dL (6.4-8.2); SODIUM 136 mmol/L (136-145); UREA NITROGEN 13 mg/dL (7-18); eGFR NON AFRICAN AMERICAN 89 mL/min (90-120)
[2018-07-15 09:05] VITALS: BP 136/85
[2018-07-15 11:08] VITALS: BP 166/47
[2018-07-15] MEDS ORDERED: PROTONIX40 MG PO (11:59)
[2018-07-15] MEDS ORDERED: BACTRIM 400-801 TAB PO (12:04)
[2018-07-15] MEDS ORDERED: VALIUM5 MG PO (14:05)
[2018-07-15] MEDS ORDERED: NORCO-7.5 PO (14:05)
[2018-07-15 16:16] VITALS: BP 120/77
== END 2018-07-15 16:40 | disposition home or self-care (01) | DRG 500 ==
LOC: D.ER 04:22 → D.EDHOLD 10:57 → D.M2 10:57 → OBSVTIME 10:58 → D.M2 11:05 → D.SDCHOLD 07-15 13:41 → D.M2 07-15 13:42
PROVIDERS: Family Medicine; Internal Medicine Nephrology; Orthopaedic Surgery
PROC: 3E023KZ Introduction of Other Diagnostic Substance into Muscle, Percutaneous Approach (ICD-10-PCS; 2018-07-05)
PROC: 0JDM0ZZ Extraction of Left Upper Leg Subcutaneous Tissue and Fascia, Open Approach (ICD-10-PCS; principal; 2018-07-11 07:30)
DX: M79.81 Nontraumatic hematoma of soft tissue (principal); J18.9 Pneumonia, unspecified organism; I82.402 Acute embolism and thrombosis of unspecified deep veins of left lower extremity; J98.11 Atelectasis; S70.02XA Contusion of left hip, initial encounter; W19.XXXA Unspecified fall, initial encounter; M25.552 Pain in left hip; M47.816 Spondylosis without myelopathy or radiculopathy, lumbar region; K21.9 Gastro-esophageal reflux disease without esophagitis; E11.65 Type 2 diabetes mellitus with hyperglycemia; M06.9 Rheumatoid arthritis, unspecified; D50.9 Iron deficiency anemia, unspecified; E83.42 Hypomagnesemia

== ENCOUNTER 2021-02-11 22:00 | Emergency (ER) | payer MEDICARE, OTHER ==
[~2021-02-11] VITALS: Ht 177.8 cm; Wt 106.1 kg
[~2021-02-11 22:00] MED LIST changes: +BACTRIM 400-801 TAB PO; +NORCO-7.5 PO; +PROTONIX40 MG PO; +VALIUM5 MG PO
[2021-02-11 22:18] VITALS: Ht 177.8 cm; Wt 106.1 kg
[2021-02-11] MEDS ORDERED: PIOGLITAZONE15 MG (22:21)
[2021-02-11] MEDS ORDERED: TREXALL7.5 MG (22:21)
[2021-02-11] MEDS ORDERED: PREVACID30 MG (22:22)
[2021-02-11] MEDS ORDERED: TRULICITY0.75 MG/0. (22:25)
[2021-02-11 23:06] LABS: BASOPHILS 1.2 % (0-2); EOSINOPHILS 2.1 % (0-7); HEMATOCRIT 45.2 % (42.0-54.0); LYMPHOCYTES 31.3 % (15-50); MCH 30.8 pg (26.0-34.0); MCHC 33.2 g/dL (31.0-37.0); MEAN PLATELET VOLUME 9.6 fL (7.4-10.4); MONOCYTES 7.8 % (2-11); NEUTROPHILS 57.6 % (40-80); RBC 4.86 10x6/uL (4.20-6.10); RDW 16.4 % (11.5-14.5)
[2021-02-11 23:07] LABS: PLATELET COUNT 206 10x3/uL (130-400)
[2021-02-11 23:14] LABS: APTT 28.1 SECONDS (22.8-39.4); INR 1.08 (0.85-1.17); PROTIME 12.9 SECONDS (11.6-15.0)
[2021-02-11 23:19] LABS: CALC OSMOLALITY 276 mosm/kg (275-300); CALCIUM 9.3 mg/dL (8.5-10.1); CARBON DIOXIDE 27.5 mmol/L (21.0-32.0); CHLORIDE - SERUM 101 mmol/L (98-107); CREATININE - SERUM 0.9 mg/dL (0.6-1.3); POTASSIUM - SERUM 3.9 mmol/L (3.5-5.1); SODIUM 137 mmol/L (136-145); UREA NITROGEN 17 mg/dL (7-18); eGFR NON AFRICAN AMERICAN 88 mL/min (90-120)
[2021-02-11 23:26] LABS: GLUCOSE 123 mg/dL (74-106)
[2021-02-11 23:35] LABS: ALBUMIN 3.6 g/dL (3.4-5.0); ALKALINE PHOSPHATASE 100 U/L (30-120); ALT (SGPT) 27 U/L (10-68); BILIRUBIN - TOTAL 0.48 mg/dL (0.2-1.3); CREATINE KINASE 78 UL (21-232); MAGNESIUM - SERUM 1.7 mg/dL (1.8-2.4); PROTEIN - SERUM 6.8 g/dL (6.4-8.2); TROPONIN-I < 0.017 ng/mL (0.000-0.060)
[2021-02-12 00:10] VITALS: BP 169/78
== END 2021-02-12 00:09 | disposition home or self-care (01) ==
LOC: D.ER 22:00
PROVIDERS: Student in an Organized Health Care Education/Training Program
DX: R00.9 Unspecified abnormalities of heart beat (principal); E11.9 Type 2 diabetes mellitus without complications; K21.9 Gastro-esophageal reflux disease without esophagitis; Z79.84 Long term (current) use of oral hypoglycemic drugs